=== PATIENT | male | born 1945 | race Caucasian/White ===

== ENCOUNTER → 2024-11-12 10:01 | Outpatient (REF) | payer OTHER, SELFPAY | LOC: RCS 10:01 | PROVIDERS: ATTENDING PHYSICIAN Internal Medicine Cardiovascular Disease; FAMILY PHYSICIAN Internal Medicine | DX: I44.2 Atrioventricular block, complete (principal); I77.810 Thoracic aortic ectasia | CPT/HCPCS: 93306 ==